=== PATIENT | female | born 1980 | race Caucasian/White ===

== ENCOUNTER → 2016-09-11 | Outpatient (CLI) | payer BC ==
[~2016-09-11] MED LIST: AMPICILLIN 1 GM in SODIUM CHLORIDE 0.9% 50 ML IVPB SCH; AMPICILLIN 2 GM in SODIUM CHLORIDE 0.9% 100 ML IVPB STA; CALCIUM CARBONATE 500 MG TAB.CHEW PO PRN; D5%-LACTATED RINGERS 1,000 ML IV SCH; DIAZ2TAB PO; FENTANYL PF 100 MCG/2ML IV PRN; FENTANYL PF 100 MCG/2ML IVPush PRN; FENTANYL PF 100 MCG/2ML ONE; FENTANYL/BUPIV./NS/PF 250 ML EPIDCONT ONE; IBUP-1222 PO; LACTATED RINGERS 1,000 ML IV SCH; LEVO200T PO; LEVO25TA2 PO; LEVOTHYROXINE PO; LYRICA PO; MECL-76 PO; MORP30TA81 PO; NEWBORN KIT ONE; ONDANSETRON 2MG/ML, 2ML IVPush PRN; ONDANSETRON 2MG/ML, 2ML ONE; OXYC-302 PO; OXYTOCIN 30U/ 0.9% NaCL 500ML 500 ML IV ONE; OXYTOCIN 30U/ 0.9% NaCL 500ML 500 ML ONE; SODIUM CITRATE/CITRIC ACID 30 ML UDC PO PRN
[2016-09-11 05:34] LABS: HEMOGLOBIN 12.3 g/dL (11.7-16.4)
== END | disposition home or self-care (01) ==
LOC: LDOP 04:31
PROVIDERS: ATTEND Obstetrics & Gynecology Gynecology
DX: Z02.9 Encounter for administrative examinations, unspecified (principal)
CPT/HCPCS: 36415; 85025

== ENCOUNTER 2017-09-22 10:59 | Day surgery (SDC) | payer BC ==
[~2017-09-22] VITALS: Ht 170.2 cm; Wt 77.0 kg
[~2017-09-22 10:59] MED LIST changes: -AMPICILLIN 1 GM in SODIUM CHLORIDE 0.9% 50 ML IVPB SCH; -AMPICILLIN 2 GM in SODIUM CHLORIDE 0.9% 100 ML IVPB STA; -CALCIUM CARBONATE 500 MG TAB.CHEW PO PRN; -D5%-LACTATED RINGERS 1,000 ML IV SCH; -FENTANYL PF 100 MCG/2ML IV PRN; -FENTANYL PF 100 MCG/2ML IVPush PRN; -FENTANYL PF 100 MCG/2ML ONE; -FENTANYL/BUPIV./NS/PF 250 ML EPIDCONT ONE; -LACTATED RINGERS 1,000 ML IV SCH; -NEWBORN KIT ONE; -ONDANSETRON 2MG/ML, 2ML IVPush PRN; -ONDANSETRON 2MG/ML, 2ML ONE; -OXYTOCIN 30U/ 0.9% NaCL 500ML 500 ML IV ONE; -OXYTOCIN 30U/ 0.9% NaCL 500ML 500 ML ONE; -SODIUM CITRATE/CITRIC ACID 30 ML UDC PO PRN
[2017-09-22 11:46] VITALS: BP 123/72
[2017-09-22] MEDS ORDERED: MIDAZOLAM 1 MG/ML, 2ML ONE (11:58)
[2017-09-22] MEDS ORDERED: FENTANYL PF 100 MCG/2ML ONE ×2 (11:58→14:51)
[2017-09-22] MEDS ORDERED: CEFAZOLIN 1,000 MG ONE (12:33)
[2017-09-22] MEDS ORDERED: ONDANSETRON 2MG/ML, 2ML ONE (12:33)
[2017-09-22] MEDS ORDERED: DEXAMETHASONE 4 MG/ML, 1ML ONE (12:33)
[2017-09-22] MEDS ORDERED: PROPOFOL 10 MG/ML, 20ML ONE (12:33)
[2017-09-22] MEDS ORDERED: HYDROmorphone 1 MG/ML, 1ML IV PRN (13:00)
[2017-09-22] MEDS ORDERED: ONDANSETRON 2MG/ML, 2ML IVPush PRN (13:00)
[2017-09-22] MEDS ORDERED: ACETAMINOPHEN 325 MG TABLET PO PRN (13:00)
[2017-09-22] MEDS ORDERED: ALBUTEROL SULFATE 2.5 MG/3 ML NPPB PRN (13:00)
[2017-09-22] MEDS ORDERED: hydrALAzine 20 MG/ML, 1ML IV PRN (13:00)
[2017-09-22] MEDS ORDERED: morphine SULFATE 10 MG/ML, 1ML IV PRN (13:00)
[2017-09-22] MEDS ORDERED: LORazepam 2 MG/ML, 1ML IVPush PRN (13:00)
[2017-09-22] MEDS ORDERED: LABETALOL 5MG/ML, 20ML IV PRN (13:00)
[2017-09-22] MEDS ORDERED: MEPERIDINE/PF 50 MG/ML ONE (14:29)
[2017-09-22] MEDS: MEPERIDINE/PF 25MG/0.5ML IVPush PRN ×2 (14:32→14:49)
[2017-09-22] MEDS: FENTANYL PF 100 MCG/2ML IV PRN ×2 (14:54→15:04)
[2017-09-22] MEDS ORDERED: OXYcodone 5 MG/5 ML ORAL.SOL UDC ONE (15:13)
[2017-09-22] MEDS ORDERED: ACETAMINOPHEN 650 MG/20.3 ML UDC ONE (15:13)
[2017-09-22] MEDS ORDERED: OXYcodone 5 MG/5 ML ORAL.SOL UDC PO ONE (15:30)
[2017-09-22] MEDS ORDERED: SCOPOLAMINE PATCH, 1.5MG PATCH.TD72 TD ONE ×2 (16:50→17:00)
[2017-09-22] MEDS ORDERED: DIPHENHYDRAMINE 50 MG/ML, 1ML ONE (16:50)
[2017-09-22] MEDS ORDERED: DIPHENHYDRAMINE 50 MG/ML, 1ML IVPush ONE (17:00)
[2017-09-22] MEDS: HALOPERIDOL 5 MG/ML IV ONE ×2 (17:25→17:32)
[2017-09-22] MEDS ORDERED: HALOPERIDOL 5 MG/ML ONE ×2 (17:35→17:36)
== END 2017-09-22 18:45 ==
LOC: OUT 10:59
PROVIDERS: ATTEND Orthopaedic Surgery Foot and Ankle Surgery
DX: S96.811A Strain of other specified muscles and tendons at ankle and foot level, right foot, initial encounter (principal); M25.371 Other instability, right ankle; M24.671 Ankylosis, right ankle; X58.XXXA Exposure to other specified factors, initial encounter; Y93.89 Activity, other specified; Y92.89 Other specified places as the place of occurrence of the external cause; Y99.8 Other external cause status
CPT/HCPCS: 20680; 27695; 29898; 36415; 84703; C1713; J0690; J1100; J1630; J2175; J2250; J2405; J2704; J3010

== ENCOUNTER 2019-09-01 10:58 | Emergency (ER) | payer BC ==
[~2019-09-01] VITALS: Ht 170.2 cm; Wt 73.1 kg
[2019-09-01 11:39] LABS: BASOPHILS # (AUTO) 0.03 x10^3/uL (0-0.1); BASOPHILS % (AUTO) 1 % (0-1); EOSINOPHILS # (AUTO) 0.12 x10^3/uL (0-0.4); EOSINOPHILS % (AUTO) 3 % (1-7); LYMPHOCYTES # (AUTO) 1.85 x10^3/uL (1-3.4); LYMPHOCYTES % (AUTO) 47 % (22-44); MD NO; MEAN CORPUSCULAR HGB CONC 33.8 g/dL (32.4-35.8); MEAN CORPUSCULAR VOLUME 97.8 fL (80-100); MEAN PLATELET VOLUME 8.9 fL (7.4-10.4); MONOCYTES # (AUTO) 0.33 x10^3/uL (0.2-0.8); MONOCYTES % (AUTO) 9 % (2-9); NEUTROPHILS # (AUTO) 1.57 x10^3/uL (1.8-6.8); NEUTROPHILS % (AUTO) 40 % (42-75); PLATELET COUNT 213 x10^3/uL (130-400); RED BLOOD COUNT 4.28 x10^6/uL (3.82-5.3); RED CELL DISTRIBUTION WIDTH 12.4 % (9.6-15.2)
[2019-09-01 11:47] LABS: ALBUMIN 3.8 g/dL (3.4-5.0); ANION GAP 5 mmol/L (5-15); CALCIUM 7.9 mg/dL (8.5-10.1); CHLORIDE 107 mmol/L (98-107); CREATININE 0.96 mg/dL (0.55-1.02)
[2019-09-01] MEDS ORDERED: SODIUM CHLORIDE FLUSH 10ML SYR IVF ONE (12:00)
[2019-09-01] MEDS ORDERED: ONDANSETRON 2MG/ML, 2ML IVPush ONE (12:00)
--- NOTE | 2019-09-01 12:01 | NUR ---
PAIN MED AND LABS - US DELAY
[2019-09-01] MEDS ORDERED: ONDANSETRON 2MG/ML, 2ML ONE (12:10)
[2019-09-01] MEDS ORDERED: HYDROmorphone 1 MG/ML, 1ML INJ ONE (12:10)
[2019-09-01 12:13] LABS: ALANINE AMINOTRANSFERASE 36 U/L (12-78)
[2019-09-01 12:14] LABS: ALKALINE PHOSPHATASE 54 U/L (45-117); BILIRUBIN,TOTAL 0.4 mg/dL (0.2-1.0); TOTAL PROTEIN 7.3 g/dL (6.4-8.2)
[2019-09-01] MEDS: HYDROmorphone 2 MG/ML, 1ML IVPush PRN ×2 (12:15→13:03)
--- NOTE | 2019-09-01 12:21 | NUR ---
pt presents to ED with c/o dysuria x 2 weeks, given PO abx OP which temporarily resolved s/x. pt states dysuria returned and progressed to generalized abd pain radiating down both legs. pt a&o, resps even and unlabored, no n/v. pt given rocephin 4 days ago by obgyn for suspected PUD. pt reports abd pain is 9/10 prior to medication. PIV placed, bp and spo2 monitors in place. pt medicated per emar, pt to US at this time.
[2019-09-01 13:09] LABS: MICROSCOPIC NOT IND
--- NOTE | 2019-09-01 13:09 | NUR ---
pt straight cath'd, sterile technique maintained. pt reports dilaudid initially relieved pain but pain is back to 7/10 after US, pt medicated per emar with second dose dilaudid to address this. pt a&o, resps even and unlabored, no n/v. pt to CT at this time.
[2019-09-01 13:10] LABS: CULTURE INDICATED? NO
--- NOTE | 2019-09-01 13:56 | NUR ---
PT RESTING ON GURNEY, A&O, RESPS EVEN AND UNLABORED, PAIN TOLERABLE PER PT. AWAITING CT RESULTS AND DISPO AT THIS TIME.
[2019-09-01] MEDS ORDERED: OMNIPAQUE 350 MG/ML, 100ML BOTTLE ONE (14:11)
--- NOTE | 2019-09-01 14:50 | NUR ---
PT UP TO BATHROOM TO VOID, GAIT STEADY. PT NOTES ABD PAIN STILL TOLERABLE, DENIES NEED FOR REPEAT MEDICATION. ALL RESULTS BACK, CHART UP FOR RECHECK. AWAITING MD AND DISPO.
[2019-09-01] MEDS ORDERED: KETOROLAC 30 MG/1 ML IVPush ONE (15:30)
--- NOTE | 2019-09-01 15:35 | NUR ---
report given to DONALD Rios who is to assume care.
[2019-09-01] MEDS ORDERED: KETOROLAC 30 MG/1 ML ONE (15:37)
[2019-09-01 15:44] VITALS: BP 129/77
== END 2019-09-01 15:47 | disposition home or self-care (01) ==
LOC: ED 14:29
DX: K59.00 Constipation, unspecified (principal); R10.84 Generalized abdominal pain; R11.0 Nausea
CPT/HCPCS: 36415; 74177; 76830; 80053; 81003; 83690; 84703; 85025; 87040; 96374; 96375; 96376; 99285; J1170; J1885; J2405; Q9967

== ENCOUNTER 2020-10-07 17:02 | Emergency (ER) | payer BC ==
[~2020-10-07] VITALS: Ht 170.2 cm; Wt 74.9 kg
[~2020-10-07 17:02] MED LIST changes: -OXYC-302 PO; +OXYC1TAB14 PO
--- NOTE | 2020-10-07 17:35 | NUR ---
PT STATES HAVING EXCRUCIATING PELVIC PAIN SINCE September. REPORTS BLEEDING AFTER HAVING INTERCOURSE WITH . HAD EXAM WITH MEDICAL CARE MANAGER WHO OBSERVED HAVING CERVICAL POLYPSED. STATES EVER SINCE MEDICAL CARE MANAGER PERFORMED PAP SMEAR SHE HAS BEEN HAVING EXTREME CRAMPING PAINS. TODAY IT HAS GOTTEN A LOT ORSE SO CAME INTO ER.
[2020-10-07] MEDS ORDERED: ONDANSETRON 2MG/ML, 2ML IVPush ONE ×2 (18:00→21:30)
[2020-10-07] MEDS ORDERED: ONDANSETRON 2MG/ML, 2ML ONE ×2 (18:28→21:20)
[2020-10-07] MEDS ORDERED: MORPHINE SULFATE 4 MG/ML, 1ML ONE ×2 (18:28→18:48)
[2020-10-07 18:32] LABS: BASOPHILS % (AUTO) 1 % (0-1); EOSINOPHILS % (AUTO) 2 % (1-7); LYMPHOCYTES % (AUTO) 32 % (22-44); MEAN CORPUSCULAR HEMOGLOBIN 33.8 pg (27.0-34.8); MEAN CORPUSCULAR HGB CONC 34.6 g/dL (32.4-35.8); MEAN PLATELET VOLUME 9.2 fL (7.4-10.4); MONOCYTES % (AUTO) 7 % (2-9); NEUTROPHILS % (AUTO) 59 % (42-75); PLATELET COUNT 182 x10^3/uL (130-400); RED BLOOD COUNT 3.96 x10^6/uL (3.82-5.3); RED CELL DISTRIBUTION WIDTH 12.6 % (9.6-15.2)
[2020-10-07] MEDS: MORPHINE SULFATE 4 MG/ML, 1ML IVPush PRN ×2 (18:32→18:52)
--- NOTE | 2020-10-07 18:38 | NUR ---
PIV STARTED AND BLOOD DRAWN. BLOOD AND URINE SENT TO LAB. PT MEDICATED PER EMAR. PT ON CONINUOUS SPO2 MONITOR FOR SAFETY.
[2020-10-07 18:39] LABS: MD NO
[2020-10-07 18:45] LABS: ALANINE AMINOTRANSFERASE 19 U/L (12-78); ALBUMIN 3.9 g/dL (3.4-5.0); ANION GAP 9 mmol/L (5-15); CALCIUM 8.4 mg/dL (8.5-10.1); CHLORIDE 107 mmol/L (98-107); CREATININE 0.89 mg/dL (0.55-1.02)
[2020-10-07 18:48] LABS: MICROSCOPIC AUTO
[2020-10-07 18:50] LABS: ALKALINE PHOSPHATASE 40 U/L (45-117); BILIRUBIN,TOTAL 0.3 mg/dL (0.2-1.0)
--- NOTE | 2020-10-07 19:24 | NUR ---
US AT BEDSIDE.
[2020-10-07] MEDS ORDERED: HYDROmorphone 2 MG/ML, 1ML ONE (19:55)
[2020-10-07] MEDS ORDERED: HYDROmorphone 2 MG/ML, 1ML IVPush PRN (20:00)
[2020-10-07 20:22] LABS: WET PREP WBCS FEW (FEW)
[2020-10-07 20:30] LABS: CLUE CELLS PRESENT (NONE SEEN)
[2020-10-07] MEDS ORDERED: KETOROLAC 30 MG/1 ML IVPush ONE (20:30)
[2020-10-07] MEDS ORDERED: CEFTRIAXONE 1,000 MG IM ONE (20:30)
[2020-10-07] MEDS ORDERED: CEFTRIAXONE 1,000 MG ONE ×2 (20:39→20:54)
[2020-10-07] MEDS ORDERED: KETOROLAC 30 MG/1 ML ONE (20:41)
[2020-10-07] MEDS ORDERED: CEFTRIAXONE 250 MG ONE (20:50)
[2020-10-07] MEDS ORDERED: OMNIPAQUE 350 MG/ML, 100ML BOTTLE ONE (21:18)
--- NOTE | 2020-10-07 21:18 | NUR ---
Back from CT.
--- NOTE | 2020-10-07 21:25 | NUR ---
Reports nauseated feeling s/p medical record consultant. Zofran per order, pt back on cont pulse ox. Call [facility] in reach. Pt asking for water, informed NPO until further notice. AIDET provided.
--- NOTE | 2020-10-07 21:46 | NUR ---
Pt reports still feeling very weak, abd discomfort nauseated feeling less since.
[2020-10-07 22:07] VITALS: BP 120/75
--- NOTE | 2020-10-07 22:21 | NUR ---
Pt dc ambulatory with instruct and f/u. IV dc cath intact. VSS, pt to f/u with pcp information technology data analyst return to ER if worse or concerns.
== END 2020-10-07 22:24 | disposition home or self-care (01) ==
LOC: ED 17:32
DX: N76.0 Acute vaginitis (principal); R10.2 Pelvic and perineal pain; N93.9 Abnormal uterine and vaginal bleeding, unspecified; R11.0 Nausea; Z79.899 Other long term (current) drug therapy
CPT/HCPCS: 36415; 74177; 76830; 80053; 81001; 84703; 85025; 87210; 87491; 87591; 87808; 96372; 96374; 96375; 96376; 99285; J0696; J1170; J1885; J2270; J2405; Q9967